=== PATIENT | male | born 1960 | race Caucasian/White ===

== ENCOUNTER → 2021-04-19 | Outpatient (CLI) | payer OTHER ==
[~2021-04-19] MED LIST: CLIN300C9 PO; DIAZ5TAB4 PO; HYDR-2214 PO; HYDR-3653 PO; LEVO150T PO; MAGN24003 PO; OMEP20CA9 PO; OXYC-380 PO; SENN8.6C2 PO; SULF1TAB23 PO
== END | disposition home or self-care (01) ==
LOC: RAD 12:29
PROVIDERS: ATTEND Pathology Hematology
DX: D69.3 Immune thrombocytopenic purpura (principal)
CPT/HCPCS: 76700